=== PATIENT | male | born 2000 | race Caucasian/White ===

== ENCOUNTER 2020-10-18 04:00 | Emergency (ER) | payer MEDICAID ==
[~2020-10-18] VITALS: Ht 182.9 cm; Wt 68.0 kg
[2020-10-18 04:10] VITALS: BP 123/90
--- NOTE | 2020-10-18 04:20 | NUR ---
PATIENT BIB [place] [employer]. PATIENT EXAMINED BY DR. LANDIN. PATIENT MEDICALLY CLEARED AND RELEASED IN CUSTODY IN STABLE CONDITION. ORIGINAL PRE-BOOK FORM GIVEN TO OFFICER JUAN MANUEL, #[id number].
== END 2020-10-18 04:20 ==
LOC: MED 04:00
DX: F19.90 Other psychoactive substance use, unspecified, uncomplicated (principal); Z02.89 Encounter for other administrative examinations
CPT/HCPCS: 99283

== ENCOUNTER 2021-03-17 06:54 | Emergency (ER) | payer MEDICAID ==
[~2021-03-17] VITALS: Ht 182.9 cm; Wt 71.7 kg
[2021-03-17 06:57] VITALS: BP 139/98
--- NOTE | 2021-03-17 07:01 | NUR ---
TO BED 11 FROM TRIAGE
--- NOTE | 2021-03-17 07:24 | NUR ---
20 Y/O MALE C/O RECTAL PAIN 05/15 DESCRIBES PRESSURE-LIKE NON-RADIATING X1WEEK. PT STATES HE "THINKS IT IS WARTS". DENIES N/V, DENIES FEVER/+CHILLS. PMH: ARRYTHMIA, CARDIOMYOPATHY RX: NITRO, AND CARVIDOLOL NKA
[2021-03-17] MEDS ORDERED: IMIQ5CRE8 TP (07:28)
--- NOTE | 2021-03-17 07:28 | NUR ---
DR. DONIS AT PT BEDSIDE FOR FURTHER EVALUATION.
--- NOTE | 2021-03-17 07:33 | NUR ---
PT AMBULATED TO RESTROOM FOR UA COLLECTION.
--- NOTE | 2021-03-17 07:36 | NUR ---
BUTTON BREAKER AT PT BEDSIDE. UA SAMPLE GIVEN AT BEDSIDE.
[2021-03-17 07:54] VITALS: BP 130/91
--- NOTE | 2021-03-17 07:54 | NUR ---
Patient discharged with v/s stable. Written and verbal after care instructions given GENITAL WARTS and explained. Patient alert, oriented and verbalized understanding of instructions. Ambulatory with steady gait. All questions addressed prior to discharge. ID band removed. Patient advised to follow up with PMD. Rx of IMIQUIMOD 5% TOPICAL 3 TIMES A WEEK FOR 30DAYS given. Patient educated on indication of medication including possible reaction and side effects. Opportunity to ask questions provided and answered.
[2021-03-18 18:05] LABS: RAPID PLASMA REAGIN REACTIVE (Non Reactiv)
== END 2021-03-17 07:54 | disposition home or self-care (01) ==
LOC: MED 06:54
DX: A63.0 Anogenital (venereal) warts (principal)
CPT/HCPCS: 36415; 86592; 86780; 99283

== ENCOUNTER 2021-03-26 14:24 | Emergency (ER) | payer MEDICAID ==
[~2021-03-26] VITALS: Ht 182.9 cm; Wt 68.0 kg
[~2021-03-26 14:24] MED LIST: IMIQ5CRE8 TP
--- NOTE | 2021-03-26 14:28 | NUR ---
BIB SELF FOR RECHECK. SEEN HERE FOR GENITAL WARTS 03/17/21. C/O PERSONAL AREA BURNING X 1.5 WEEKS. PMH: HEART PROBLEM
[2021-03-26 14:31] VITALS: BP 154/103
--- NOTE | 2021-03-26 14:48 | NUR ---
Penelope matamoros in [facility] - 03/26/21 at 1450 by [email or web address] NO NEED NURSING INTERVENTIONS, SEEN & TREAT BY CROW WOOTEN.
--- NOTE | 2021-03-26 14:49 | NUR ---
Patient being evaluated by CROW WOOTEN at bedside.
[2021-03-26] MEDS ORDERED: PENICILLIN G BENZATHINE L-A 1.2 MU/2 ML SYR IM ONE (14:50)
--- NOTE | 2021-03-26 15:20 | NUR ---
PT NOT IN LOBBY AT THIS TIME FOR DISCHARGE INFORMATION. MADE AWARE.
--- NOTE | 2021-03-26 15:28 | NUR ---
PT CALLED SECOND TIME, NOT IN LOBBY AT THIS TIME.
[2021-03-26 15:30] VITALS: BP 154/103
--- NOTE | 2021-03-26 15:32 | NUR ---
PHONE ON FILE IS NOT IN SERVICE AT THIS TIME.
--- NOTE | 2021-03-26 15:34 | NUR ---
TRIED TO GET IN CONTACT WITH MOTHER ON FILE, NO ANSWER AT THIS TIME.
== END 2021-03-26 15:19 | disposition home or self-care (01) ==
LOC: MED 14:24
DX: A53.9 Syphilis, unspecified (principal); Z79.899 Other long term (current) drug therapy; Z86.79 Personal history of other diseases of the circulatory system
CPT/HCPCS: 96372; 99283; J0561

== ENCOUNTER 2021-06-21 23:15 | Emergency (ER) | payer MEDICAID, SELFPAY ==
[~2021-06-21] VITALS: Ht 182.9 cm; Wt 67.6 kg
[~2021-06-21 23:15] MED LIST changes: +CARV25TA PO; -IMIQ5CRE8 TP; +NITR0.4T2 SL; +VITD400 PO
[2021-06-21 23:33] VITALS: BP 148/89
[2021-06-22 01:10] LABS: BASOPHILS # (AUTO) 0.1 K/uL (0.00-0.22); BASOPHILS % (AUTO) 0.7 % (0.0-2.0); EOSINOPHILS # (AUTO) 0.1 K/uL (0-0.4); EOSINOPHILS % (AUTO) 1.3 % (0.0-4.0); HEMATOCRIT 42.4 % (36-52); HEMOGLOBIN 14.3 g/dL (12.0-18.0); LYMPHOCYTES # (AUTO) 3.1 K/uL (2.0-11.5); LYMPHOCYTES % (AUTO) 39.9 % (20.5-51.1); MEAN CORPUSCULAR HEMOGLOBIN 31 pg (27-31); MEAN CORPUSCULAR HGB CONC 34 g/dL (33-37); MEAN CORPUSCULAR VOLUME 92.3 fL (80-94); MONOCYTES # (AUTO) 0.6 K/uL (0.8-1.0); MONOCYTES % (AUTO) 7.4 % (1.7-9.3); NEUTROPHILS % (AUTO) 50.7 % (42.2-75.2); PLATELET COUNT (AUTO) 367 K/uL (140-450); RED CELL DISTRIBUTION WIDTH 15.2 % (11.6-13.7); WHITE BLOOD COUNT (AUTO) 7.9 K/uL (4.8-10.8)
[2021-06-22] MEDS ORDERED: NACL 0.9% 1,000 ML IV ONE (01:10)
[2021-06-22 01:34] LABS: ANION GAP 7.9 (8-16); ASPARTATE AMINOTRANSFERASE 50 U/L (15-37); CARBON DIOXIDE 32.8 mmol/L (21-32); CHLORIDE 104 mmol/L (98-107); CREATININE 1.2 mg/dL (0.6-1.3); GFR ARICAN-AMERICAN 97 mL/min (>90); GLUCOSE 217 mg/dL (74-106); POTASSIUM 3.7 mmol/L (3.5-5.1); SODIUM SERUM 141 mmol/L (136-145); TOTAL BILIRUBIN 0.4 mg/dL (0.0-1.0); UREA NITROGEN, BLOOD 19 mg/dL (7-18)
[2021-06-22 01:37] LABS: ACETAMINOPHEN < 0.5 ug/ml (10-30); SALICYLATE < 2.8 mg/dL (2.8-20.0)
[2021-06-22 01:44] LABS: FREE T4 (FREE THYROXINE) 0.91 ng/dL (0.76-1.46); THYROID STIMULATING HORMONE 4.31 uIU/mL (0.34-3.74)
[2021-06-22 02:54] VITALS: BP 129/77
== END 2021-06-22 02:54 | disposition home or self-care (01) ==
LOC: MED 23:15
DX: R07.2 Precordial pain (principal); Z79.899 Other long term (current) drug therapy
CPT/HCPCS: 36415; 71045; 80053; 82550; 83880; 84439; 84443; 84484; 85025; 93005; 99285; G0480; G0482; J7030; Q0092

== ENCOUNTER 2021-11-12 17:24 | Emergency (ER) | payer MEDICAID ==
[~2021-11-12] VITALS: Ht 182.9 cm; Wt 63.0 kg
[2021-11-12 17:26] VITALS: BP 132/95
--- NOTE | 2021-11-12 17:34 | NUR ---
pt states he will leave at this time, pt is upset that his girlfriend can not come back because she could not provide identification to [facility] lobby desk
== END 2021-11-12 17:34 | disposition left against medical advice (07) ==
LOC: MED 17:24
DX: M54.50 Low back pain, unspecified (principal); R42 Dizziness and giddiness; Z53.21 Procedure and treatment not carried out due to patient leaving prior to being seen by health care provider
CPT/HCPCS: 99281; 99283

== ENCOUNTER 2022-03-24 00:30 | Emergency (ER) | payer MEDICAID ==
[~2022-03-24] VITALS: Ht 182.9 cm; Wt 63.5 kg
[2022-03-24 00:50] VITALS: BP 122/77
--- NOTE | 2022-03-24 00:53 | NUR ---
TO LOBBY A/W BED AMBULATORY
[2022-03-24] MEDS ORDERED: DOXYCYCLINE 100 MG CAP PO STA (01:42)
[2022-03-24] MEDS ORDERED: cefTRIAXone 500 MG in LIDOCAINE MPF 1% 1 ML IM ONE (01:45)
[2022-03-24] MEDS ORDERED: cefTRIAXone 500 MG VIAL ONE (01:50)
[2022-03-24] MEDS ORDERED: DOXY-690 PO (01:50)
[2022-03-24 02:06] VITALS: BP 122/77
--- NOTE | 2022-03-24 02:06 | NUR ---
Patient discharged with v/s stable. Written and verbal after care instructions given and explained. Patient alert, oriented and verbalized understanding of instructions. Ambulatory with steady gait. All questions addressed prior to discharge. ID band removed. Patient advised to follow up with PMD. Rx of VIBRAMYCIN given. Patient educated on indication of medication including possible reaction and side effects. Opportunity to ask questions provided and answered.
== END 2022-03-24 02:06 | disposition home or self-care (01) ==
LOC: MED 00:30
DX: R30.0 Dysuria (principal); I25.10 Atherosclerotic heart disease of native coronary artery without angina pectoris; F12.90 Cannabis use, unspecified, uncomplicated
CPT/HCPCS: 81002; 87491; 96372; 99283; J0696

== ENCOUNTER 2022-04-17 01:30 | Emergency (ER) | payer MEDICAID ==
[~2022-04-17] VITALS: Ht 182.9 cm; Wt 67.1 kg
[~2022-04-17 01:30] MED LIST changes: +DOXY-690 PO
[2022-04-17 01:35] VITALS: BP 140/91
--- NOTE | 2022-04-17 01:42 | NUR ---
TO LOBBY FOLLOWING TRIAGE
--- NOTE | 2022-04-17 03:28 | NUR ---
PT TO [facility].
--- NOTE | 2022-04-17 03:32 | NUR ---
21 YO M BIB SELF WITH C/C OF GENITAL AND BILAT ARM ITCHINESS X1 WK. STATES HE WENT TO [facility] AND WAS D/C WITH ITCH CREAM THAT HAS NOT BEEN WORKING. PTS LEFT FOREARM APPEARS TO HAVE INFLAMMATION WITH REDNESS. HX:ENLARGED HEART RX:ASA, NITROGLYCERIN, AND CARVEDILOL
[2022-04-17] MEDS ORDERED: HYDROXYZINE HYDROCHLORIDE 25 MG TAB PO STA (04:00)
[2022-04-17] MEDS ORDERED: HYDR-1093 PO (04:03)
[2022-04-17] MEDS ORDERED: HYDROXYZINE HYDROCHLORIDE 25 MG TAB ONE (04:04)
[2022-04-17 04:10] VITALS: BP 147/91
--- NOTE | 2022-04-17 04:10 | NUR ---
Patient discharged with v/s stable. Written and verbal after care instructions given and explained. Patient alert, oriented and verbalized understanding of instructions. Ambulatory with steady gait. All questions addressed prior to discharge. ID band removed. Patient advised to follow up with PMD. Rx of HYDROXYZINE given. Patient educated on indication of medication including possible reaction and side effects. Opportunity to ask questions provided and answered.
== END 2022-04-17 04:10 | disposition home or self-care (01) ==
LOC: MED 01:30
DX: L29.9 Pruritus, unspecified (principal); I25.10 Atherosclerotic heart disease of native coronary artery without angina pectoris
CPT/HCPCS: 99283

== ENCOUNTER 2022-07-24 23:00 | Emergency (ER) | payer MEDICAID ==
[~2022-07-24] VITALS: Ht 167.6 cm; Wt 63.5 kg
[~2022-07-24 23:00] MED LIST changes: +HYDR-1093 PO
[2022-07-24 23:05] VITALS: BP 135/73
--- NOTE | 2022-07-24 23:12 | NUR ---
TO Lucie CONTI FOLLOWING TRIAGE
--- NOTE | 2022-07-25 00:39 | NUR ---
PT TAKEN TO BED 9
--- NOTE | 2022-07-25 00:42 | NUR ---
Dr. [place] examining patient.
[2022-07-25] MEDS ORDERED: NALO4SPR NS (00:45)
--- NOTE | 2022-07-25 00:54 | NUR ---
Patient discharged with v/s stable. Written and verbal after care instructions given and explained. Patient alert, oriented and verbalized understanding of instructions. Ambulatory with steady gait. All questions addressed prior to discharge. ID band removed. Patient advised to follow up with PMD. Rx of NARCAN given. Patient educated on indication of medication including possible reaction and side effects. Opportunity to ask questions provided and answered.
[2022-07-25 01:01] VITALS: BP 135/73
== END 2022-07-25 00:54 | disposition home or self-care (01) ==
LOC: MED 23:00
DX: F19.10 Other psychoactive substance abuse, uncomplicated (principal); F12.90 Cannabis use, unspecified, uncomplicated; F11.90 Opioid use, unspecified, uncomplicated; Z79.899 Other long term (current) drug therapy
CPT/HCPCS: 99283

== ENCOUNTER 2022-08-25 16:34 | Emergency (ER) | payer MEDICAID ==
[~2022-08-25] VITALS: Ht 182.9 cm; Wt 63.5 kg
[~2022-08-25 16:34] MED LIST changes: +NALO4SPR NS
[2022-08-25 16:42] VITALS: BP 136/94
[2022-08-25] MEDS ORDERED: DIPH25TA53 PO (17:57)
[2022-08-25] MEDS ORDERED: CEPH-588 PO (17:57)
[2022-08-25] MEDS ORDERED: ELIMC TP (17:57)
--- NOTE | 2022-08-25 18:26 | NUR ---
PT LEFT WITHOUT DC PAPERWORK.
== END 2022-08-25 18:26 | disposition home or self-care (01) ==
LOC: MED 16:43
DX: R21 Rash and other nonspecific skin eruption (principal); F12.90 Cannabis use, unspecified, uncomplicated; F15.90 Other stimulant use, unspecified, uncomplicated; Z72.89 Other problems related to lifestyle
CPT/HCPCS: 99283

== ENCOUNTER 2022-08-27 22:41 | Emergency (ER) | payer MEDICAID ==
[~2022-08-27] VITALS: Ht 182.9 cm; Wt 67.1 kg
[~2022-08-27 22:41] MED LIST changes: +CEPH-588 PO; +DIPH25TA53 PO; +ELIMC TP
--- NOTE | 2022-08-27 22:46 | NUR ---
Dr. Sandoval examining patient.
[2022-08-27 22:48] VITALS: BP 130/73
--- NOTE | 2022-08-27 22:48 | NUR ---
PT MIKAYLA ALLREDS. TAKEN TO BED 4
--- NOTE | 2022-08-27 22:54 | NUR ---
URINAL PROVIDED FOR PT.
--- NOTE | 2022-08-27 22:55 | NUR ---
LAB AND RAD AT BEDSIDE
--- NOTE | 2022-08-27 23:04 | NUR ---
Penelope matamoros in [facility] - 08/27/22 at 2306 by COLETTE PT TAKEN TO RADIOLOGY
[2022-08-27 23:05] LABS: BASOPHILS # (AUTO) 0.1 K/uL (0.00-0.22); BASOPHILS % (AUTO) 1.2 % (0.0-2.0); EOSINOPHILS # (AUTO) 0.2 K/uL (0-0.4); EOSINOPHILS % (AUTO) 3.4 % (0.0-4.0); HEMATOCRIT 41.8 % (36-52); HEMOGLOBIN 13.9 g/dL (12.0-18.0); LYMPHOCYTES # (AUTO) 1.7 K/uL (2.0-11.5); LYMPHOCYTES % (AUTO) 30.4 % (20.5-51.1); MEAN CORPUSCULAR HEMOGLOBIN 30 pg (27-31); MEAN CORPUSCULAR HGB CONC 33 g/dL (33-37); MEAN CORPUSCULAR VOLUME 90.3 fL (80-94); MONOCYTES # (AUTO) 0.5 K/uL (0.8-1.0); MONOCYTES % (AUTO) 9.4 % (1.7-9.3); NEUTROPHILS # (AUTO) 3.1 K/uL (1.8-7.7); NEUTROPHILS % (AUTO) 55.6 % (42.2-75.2); PLATELET COUNT (AUTO) 282 K/uL (140-450); RED BLOOD CELL COUNT(AUTO) 4.63 MIL/uL (4.20-6.10); RED CELL DISTRIBUTION WIDTH 14.5 % (11.6-13.7); WHITE BLOOD COUNT (AUTO) 5.6 K/uL (4.8-10.8)
--- NOTE | 2022-08-27 23:06 | NUR ---
PT RETURN FROM RADIOLOGY
--- NOTE | 2022-08-27 23:12 | NUR ---
EKG performed. Physician given copy of EKG for review.
[2022-08-27 23:26] LABS: APPEARANCE,URINE CLEAR (CLEAR); BILIRUBIN,URINE NEGATIVE (NEGATIVE); BLOOD, URINE NEGATIVE (NEGATIVE); COLOR,URINE YELLOW (YELLOW); LEUKOCYTE ESTERASE ,URINE NEGATIVE (NEGATIVE); NITRITE, URINE NEGATIVE (NEGATIVE); PH,URINE 6.5 (5.0-9.0); UGLUCOSE NEGATIVE (NEGATIVE)
[2022-08-27 23:28] LABS: ALBUMIN 3.8 g/dL (3.4-5.0); ANION GAP 10.4 (8-16); ASPARTATE AMINOTRANSFERASE 25 U/L (15-37); CARBON DIOXIDE 31.6 mmol/L (21-32); CHLORIDE 102 mmol/L (98-107); CREATININE 0.9 mg/dL (0.6-1.3); GFR ARICAN-AMERICAN 134 mL/min (>90); GLUCOSE 117 mg/dL (74-106); SODIUM SERUM 140 mmol/L (136-145); TOTAL BILIRUBIN 0.2 mg/dL (0.0-1.0); UREA NITROGEN, BLOOD 16 mg/dL (7-18)
[2022-08-27 23:30] LABS: ACETAMINOPHEN < 0.5 ug/ml (10-30); SALICYLATE < 2.8 mg/dL (2.8-20.0)
[2022-08-28 00:44] LABS: BARBITURATE, URINE NEGATIVE ng/ml (NEG <=200); BENZODIAZEPINE, URINE NEGATIVE ng/mL (NEG <=200); CANNABINOID, URINE POSITIVE ng/mL (NEG <=50); COCAINE, URINE NEGATIVE ng/mL (NEG <=300); OPIATE, URINE POSITIVE ng/mL (NEG <=2000); PHENCYCLIDINE SCREEN,URINE NEGATIVE ng/mL (NEG <=25)
--- NOTE | 2022-08-28 01:24 | NUR ---
PATIENT SLEEPING AT THIS TIME VITALS SIGNS IN NORMAL LIMITS [address] ON MONITOR
[2022-08-28] MEDS ORDERED: NALOXONE PFS 2 MG/2 ML SYR IVP ONE (02:55)
[2022-08-28] MEDS ORDERED: NACL 0.9% 1,000 ML IV ONE (03:30)
--- NOTE | 2022-08-28 03:39 | NUR ---
PATIENT STABLE AFTER THE ADMINISTRATION OF NARCAN 2 MG HR 98 R 20 SP02 99 % BP138/83
--- NOTE | 2022-08-28 04:02 | NUR ---
PATIENT SLEEPING AT THIS STABLE TIME ,, VITALS SIGNS IN NORMAL LIMITS HR 86 R 20 BP 133/79 SPO2 96 %
--- NOTE | 2022-08-28 04:05 | NUR ---
PATIENT GETTING A NS 0.9 1000 ML TOLERATED WELL HR 84 SPO2 98%
--- NOTE | 2022-08-28 05:15 | NUR ---
PT SISTER ARRIVED TO REMOTE ADVISOR PT.
[2022-08-28] MEDS ORDERED: NALO4SPR NS (05:17)
--- NOTE | 2022-08-28 05:20 | NUR ---
PATIENT ALERT ORIENTED DC HOME STABLE AGREE TO GIVE INFORMATION ABOUT HIS HEALTH TO HIS SISTER MILA ALL DC INSTRUCTION GAVE AND EXPLAINED TO BOTH ALONG WITH EDUCATION VTALS SIGNS IN NORMAL LIMITS WE RECOMMEND TO FOLLOW UP WITH ANIMAL NUTRITIONIST
[2022-08-28 05:25] VITALS: BP 132/72
== END 2022-08-28 05:20 | disposition home or self-care (01) ==
LOC: MED 22:41
DX: R41.82 Altered mental status, unspecified (principal); Z20.822 Contact with and (suspected) exposure to COVID-19; T40.2X1A Poisoning by other opioids, accidental (unintentional), initial encounter; F12.90 Cannabis use, unspecified, uncomplicated; F15.90 Other stimulant use, unspecified, uncomplicated; I25.10 Atherosclerotic heart disease of native coronary artery without angina pectoris; Y92.89 Other specified places as the place of occurrence of the external cause
CPT/HCPCS: 36415; 70450; 80053; 80305; 81003; 85025; 87426; 87804; 93005; 96361; 96374; 99285; G0480; G0482; J2310; J7030